=== PATIENT | female | born 1960 | race African-American/Black ===

== ENCOUNTER 2021-03-03 08:40 | Emergency (ER) | payer BC ==
[2021-03-03 09:27] VITALS: BP 157/80; PULSE 83; TEMP 98.2; BMI 63.3
[2021-03-03] MEDS ORDERED: SODIUM CHLORIDE 0.9% 500 ML INFUS.BAG IV ONE (09:52)
[2021-03-03] MEDS ORDERED: ACETAMINOPHEN 1000 MG/100 ML VIAL IVPB ONE (09:52)
[2021-03-03] MEDS ORDERED: METOCLOPRAMIDE HCL INJECTION 10 MG/2 ML VIAL IVPUSH ONE (09:52)
[2021-03-03] MEDS ORDERED: METOCLOPRAMIDE HCL INJECTION 10 MG/2 ML VIAL ONE (09:57)
[2021-03-03] MEDS ORDERED: ACETAMINOPHEN INJECTION 100 ML IVPB ONE (09:57)
[2021-03-03 10:47] LABS: BASO % 0.7 % (0-2.0); EOS % 2.1 % (0-4.5); HEMATOCRIT 43.3 % (32.4-45.2); HEMOGLOBIN 14.2 GM/dL (10.7-15.3); LYMPH % 32.5 % (8-40); MCH 25.2 pg (25.7-33.7); MCHC 32.9 g/dl (32.0-36.0); MEAN CELL VOLUME 76.7 fl (80-96); MEAN PLT VOLUME 7.8 fl (7.5-11.1); MONO % 7.1 % (3.8-10.2); NEUT % 57.6 % (42.8-82.8); PLATELET COUNT 267 10^3/uL (134-434); RBC 5.64 M/mm3 (3.60-5.2); WHITE BLOOD COUNT 7.4 K/mm3 (4.0-10.0)
[2021-03-03 11:13] LABS: CALCIUM 8.8 mg/dL (8.5-10.1)
[2021-03-03 11:14] LABS: ALBUMIN 2.8 g/dl (3.4-5.0); BLOOD UREA NITROGEN 10.7 mg/dL (7-18)
[2021-03-03 11:19] LABS: BILIRUBIN,TOTAL 0.4 mg/dL (0.2-1); TOT PROT 7.1 g/dl (6.4-8.2)
== END 2021-03-03 12:50 | disposition home or self-care (01) ==
LOC: JER 08:40
PROC: 3E033GC Introduction of Other Therapeutic Substance into Peripheral Vein, Percutaneous Approach (ICD-10-PCS; principal; 2021-03-03)
DX: R51.9 Headache, unspecified (principal)
CPT/HCPCS: 36415; 70450-TC; 80053; 85025; 99285-25; J0131

== ENCOUNTER 2022-10-24 04:40 | Day surgery (SDC) | payer OTHER ==
[2022-10-22 11:01] VITALS: BMI 59.8
[2022-10-24] MEDS ORDERED: PROPOFOL 20 ML ONE (14:54)
[2022-10-24] MEDS ORDERED: MIDAZOLAM HCL 2 MG/2 ML SINGLE DOSE VIAL ONE (14:55)
[2022-10-24] MEDS ORDERED: KETAMINE HCL 500 MG/10 ML VIAL ONE (17:43)
[2022-10-24] MEDS ORDERED: SUCCINYLCHOLINE CHLORIDE 200 MG/10 ML SYRINGE ONE (17:44)
[2022-10-24] MEDS ORDERED: ceFAZolin SODIUM 1 GM VIAL IVPB ONE (17:50)
[2022-10-24] MEDS ORDERED: ceFAZolin SODIUM 1 GM VIAL ONE ×3 (17:52)
[2022-10-24] MEDS ORDERED: KETOROLAC TROMETHAMINE 30 MG/1 ML VIAL IVPUSH ONE (18:24)
[2022-10-24] MEDS ORDERED: ONDANSETRON 4 MG/2 ML VIAL IVPUSH PRN (18:24)
[2022-10-24] MEDS ORDERED: LACTATED RINGERS SOLUTION 1,000 ML IV SCH (18:30)
[2022-10-24] MEDS ORDERED: ACETAMINOPHEN INJECTION 100 ML IVPB ONE (18:52)
[2022-10-24] MEDS ORDERED: ACETAMINOPHEN 1000 MG/100 ML BAG IVPB ONE (18:56)
[2022-10-24 22:50] VITALS: BP 149/75; PULSE 90; RESP 20; TEMP 97.7
== END 2022-10-24 22:35 | disposition home or self-care (01) ==
LOC: JASU-SURG 04:40 → JASUSAT 04:40
PROVIDERS: ATTEND Obstetrics & Gynecology
PROC: 0UDB8ZX Extraction of Endometrium, Via Natural or Artificial Opening Endoscopic, Diagnostic (ICD-10-PCS; principal; 2022-10-24 15:00)
DX: N95.0 Postmenopausal bleeding (principal); N84.0 Polyp of corpus uteri
CPT/HCPCS: 88305-TC; 94760